=== PATIENT | female | born 1940 | race Caucasian/White ===

== ENCOUNTER 2016-11-24 19:50 | Emergency (ER) | payer MEDICARE ==
[2016-11-24 20:00] VITALS: BP 124/69
[2016-11-24] MEDS ORDERED: Cephalexin CAP* 500 MG PO ONE (20:16)
--- NOTE | 2016-11-24 20:37 | UC ---
Skin Complaint HPI - HPI Summary HPI Summary: Three days of blistering with increasing tenderness and redness of left great toe. No history of gout. No known trauma, but has been on feet a lot. No history of fever or diabetes. - History of Current Complaint Chief Complaint: UCLowerExtremity Time Seen by Provider: 11/24/16 20:04 Stated Complaint: LT FOOT TOE COMPLAINT Hx Obtained From: Patient Onset/Duration: Gradual Onset, Lasting Days, Worse Since - daily Onset Severity: Mild Current Severity: Mild Pain Intensity: 7 Pain Scale Used: 0-10 Numeric Location: Discrete Character: Swelling - small blister, Redness, Painful Aggravating: Nothing Alleviating: Nothing Associated Signs & Symptoms: Positive: Tenderness, Red Streaks. Negative: Fever , Cough, Drainage, Bruising, Joint Swelling - Allergy/Home Medications Allergies/Adverse Reactions: Allergies Allergy/AdvReac Type Severity Reaction Status Date / Time Aspirin Allergy GI Upset Verified 11/24/16 20:01 Home Medications: Home Medications aMILoride/HCTZ 5-50 MG TAB* [Moduretic 5-50 TAB*] 1 tab PO DAILY 11/24/16 [ History Confirmed 11/24/16] Review of Systems Constitutional: Negative Skin: Other - LEFT GREAT TOE ERRETHEMA 1CM X 1CM BLISTER MEDIAL DISTAL TOE Eyes: Negative ENT: Negative Respiratory: Negative Cardiovascular: Negative Gastrointestinal: Negative Genitourinary: Negative Motor: Negative Neurovascular: Negative Musculoskeletal: Negative Neurological: Negative Psychological: Negative All Other Systems Reviewed And Are Negative: Yes PMH/Surg Hx/FS Hx/Imm Hx Previously Healthy: Yes Endocrine History Of: Denies: Diabetes, Thyroid Disease Cardiovascular History Of: Denies: Cardiac Disorders, Hypertension Respiratory History Of: Denies: COPD, Asthma GI/ History Of: Denies: Ulcer - Surgical History Surgical History: Yes Surgery Procedure, Year, and Place: Right Rotator cuff. metatarsal reconstruction left foot. right foot procedure. trigger finger release middle finger right hand. carpal tunnel release - Family History Known Family History: Negative: Diabetes - Social History Occupation: Retired Lives: With Family Alcohol Use: None Substance Use Type: None Smoking Status (MU): Never Smoked Tobacco Physical Exam Triage Information Reviewed: Yes Appearance: Well-Appearing, No Pain Distress Vital Signs: Initial Vital Signs Temp 98.3 F 11/24/16 19:55 Pulse 77 11/24/16 19:55 Resp 14 04/14/17 19:55 BP 124/69 11/24/16 19:55 Pulse Ox 98 11/24/16 19:55 Vital Signs Reviewed: Yes Eye Exam: Normal ENT Exam: Normal Dental Exam: Normal Neck exam: Normal Neck: Positive: Supple, Nontender, No Lymphadenopathy Respiratory Exam: Normal Respiratory: Positive: Chest non-tender, Lungs clear, Normal breath sounds, No respiratory distress Cardiovascular Exam: Normal Cardiovascular: Positive: RRR, No Murmur, Pulses Normal Abdominal Exam: Normal Musculoskeletal Exam: Normal Neurological Exam: Normal Psychological Exam: Normal Skin Exam: Normal Course/Dx - Differential Diagnoses - Skin Complaint Differential Diagnoses: Abscess, Cellulitis, Other - GOUT - Diagnoses Provider Diagnoses: CELLULITIS LEFT GREAT TOE Discharge - Discharge Plan Condition: Stable Disposition: HOME Prescriptions: Cephalexin CAP* [Keflex CAP*] 500 mg PO QID #40 cap Patient Education Materials: Cellulitis (ED) Referrals: Kaleb BUTLER,Cole Causey [Medical Doctor] -
== END 2016-11-24 20:39 | disposition home or self-care (01) ==
LOC: UCCORT 19:50
DX: L03.032 Cellulitis of left toe (principal); Z88.6 Allergy status to analgesic agent
CPT/HCPCS: 99202; A9270-GY; G0463

== ENCOUNTER 2017-02-11 18:36 | Emergency (ER) | payer MEDICARE ==
[2017-02-11 18:53] VITALS: BP 119/67
[2017-02-11] MEDS ORDERED: Cephalexin CAP* 500 MG PO ONE (19:32)
--- NOTE | 2017-02-11 19:32 | UC ---
General HPI - HPI Summary HPI Summary: complaint of red area on her right leg above her ankle has it for approx 1 week intermittently painful redness has increased then reduced over the last few days extreley itchy unkown if she was insect bite, been in the garden denies fever and pain - History of Current Complaint Chief Complaint: UCSkin Stated Complaint: right leg skin complaint Time Seen by Provider: 02/11/17 19:21 Hx Obtained From: Patient - Allergy/Home Medications Allergies/Adverse Reactions: Allergies Allergy/AdvReac Type Severity Reaction Status Date / Time Aspirin AdvReac GI Upset Verified 02/11/17 18:53 Home Medications: Home Medications Zolpidem TAB* [Ambien*] 0.5 mg PO BEDTIME PRN 02/11/17 [History Confirmed ] diPHENhydraMINE PO* [Benadryl PO 25 MG TAB*] 25 mg PO ONCE 02/11/17 [History Confirmed 02/11/17] PMH/Surg Hx/FS Hx/Imm Hx Previously Healthy: Yes - Surgical History Surgical History: Yes Surgery Procedure, Year, and Place: Right Rotator cuff. metatarsal reconstruction left foot. right foot procedure. trigger finger release middle finger right hand. carpal tunnel release - Family History Known Family History: Negative: Cardiac Disease, Hypertension, Diabetes - Social History Occupation: Retired Lives: With Family Alcohol Use: Occasionally Substance Use Type: None Smoking Status (MU): Never Smoked Tobacco Review of Systems Constitutional: Negative Skin: Rash Eyes: Negative ENT: Negative Respiratory: Negative Cardiovascular: Negative Gastrointestinal: Negative Genitourinary: Negative Motor: Negative Neurovascular: Negative Musculoskeletal: Negative Neurological: Negative Psychological: Negative All Other Systems Reviewed And Are Negative: Yes Physical Exam Triage Information Reviewed: Yes Appearance: No Pain Distress, Well-Nourished Vital Signs: Initial Vital Signs Temp 97.6 F 02/11/17 18:41 Pulse 75 02/11/17 18:41 Resp 20 02/11/17 18:41 BP 119/67 02/11/17 18:41 Pulse Ox 100 02/11/17 18:41 Vital Signs Reviewed: Yes Eyes: Positive: Conjunctiva Clear ENT: Positive: Pharynx normal, TMs normal Neck: Positive: Supple Respiratory: Positive: Lungs clear, Normal breath sounds, No respiratory distress Cardiovascular: Positive: RRR, No Murmur, Pulses Normal Abdomen Description: Positive: Nontender, Soft Bowel Sounds: Positive: Present Musculoskeletal: Positive: No Edema Neurological: Positive: Alert Psychological Exam: Normal Skin: Positive: Other - right leg obve medial mallelous 7x9 cm area of erythema - warm to touch Course/Dx - Course Course Of Treatment: exam completed. will treat for cellulitis. pt concerned about lyme disease- no known tick bites- will draw serology - Differential Dx - Multi-Symptom Provider Diagnoses: cellulitis Discharge - Discharge Plan Condition: Stable Disposition: HOME Prescriptions: Cephalexin CAP* [Keflex CAP*] 500 mg PO TID #20 cap Patient Education Materials: Cellulitis (ED) Referrals: Dora Casey DO [Primary Care Provider] - Additional Instructions: Please start antibiotic as directed Increase fluids and rest Take acetaminophen or ibuprofen for fever or pain Please review your discharge instructions. If your symptoms do not improve please call your primary care provider or return to urgent care.
== END 2017-02-11 20:06 | disposition home or self-care (01) ==
LOC: UCCORT 18:36
DX: L03.115 Cellulitis of right lower limb (principal)
CPT/HCPCS: 86618; 99212; A9270-GY; G0463

== ENCOUNTER 2017-07-13 15:10 | Emergency (ER) | payer MEDICARE ==
[2017-07-13 16:08] VITALS: BP 124/73
--- NOTE | 2017-07-13 17:05 | UC ---
Complaint Female HPI - HPI Summary HPI Summary: THREE DAYS AGO HAD 'STOMACH BUG' NAUSEA, ONE EPISODE OF VOMITING, AND DIARRHEA. SYMPTOMS RESOLVED (LOOSE STOOL STILL REMAINS). ONE DAY OF DISCOMFORT WITH URINATION. NO ABDOMINAL PAIN. NO BACK PAIN. - History Of Current Complaint Chief Complaint: UCGU Stated Complaint: URINARY COMPLAINT Time Seen by Provider: 07/13/17 16:16 Hx Obtained From: Patient, Family/Moving Consultant Onset/Duration: Gradual Onset, Lasting Days Timing: Intermittent Severity Currently: Mild Pain Intensity: 2 Pain Scale Used: 0-10 Numeric Character: Dull Aggravating Factor(s): Urination Associated Signs And Symptoms: Positive: Nausea - RESOLVED, Vomiting(# Of Episodes =) - 1 RESOLVED. Negative: Fever, Back Pain, Vaginal Bleeding/ Discharge, Vaginal Discharge, Genital Swelling, Genital Blisters - Risk Factors Ectopic Risk Factor: Negative Ovarian Torsion Risk Factor: Negative - Allergies/Home Medications Allergies/Adverse Reactions: Allergies Allergy/AdvReac Type Severity Reaction Status Date / Time Aspirin AdvReac GI Upset Verified 07/13/17 16:02 PMH/Surg Hx/FS Hx/Imm Hx Previously Healthy: Yes - Surgical History Surgical History: Yes Surgery Procedure, Year, and Place: Right Rotator cuff. metatarsal reconstruction left foot. right foot procedure. trigger finger release middle finger right hand. carpal tunnel release - Family History Known Family History: Negative: Cardiac Disease, Hypertension, Diabetes - Social History Occupation: Retired Lives: With Family Alcohol Use: None Substance Use Type: None Smoking Status (MU): Never Smoked Tobacco - Immunization History Most Recent Influenza Vaccination: 2017 Review of Systems Constitutional: Negative Skin: Negative Eyes: Negative ENT: Negative Respiratory: Negative Cardiovascular: Negative Gastrointestinal: Vomiting - RESOLVED, Diarrhea - RESOLVING, Nausea - RESOLVED Genitourinary: Dysuria, Frequency Motor: Negative Neurovascular: Negative Musculoskeletal: Negative Neurological: Negative Psychological: Negative Is Patient Immunocompromised?: No All Other Systems Reviewed And Are Negative: Yes Physical Exam Triage Information Reviewed: Yes Appearance: Well-Appearing, No Pain Distress, Well-Nourished Vital Signs: Initial Vital Signs Temp 97.9 F 07/13/17 16:03 Pulse 76 07/13/17 16:03 Resp 16 07/13/17 16:03 BP 124/73 07/13/17 16:03 Pulse Ox 100 07/13/17 16:03 Vital Signs Reviewed: Yes Eye Exam: Normal ENT Exam: Normal ENT: Positive: Normal ENT inspection Dental Exam: Normal Neck exam: Normal Neck: Positive: Supple, Nontender, No Lymphadenopathy Respiratory Exam: Normal Respiratory: Positive: Chest non-tender, Lungs clear, Normal breath sounds, No respiratory distress, No accessory muscle use Cardiovascular Exam: Normal Cardiovascular: Positive: RRR, No Murmur, Pulses Normal, Brisk Capillary Refill Abdominal Exam: Normal Abdomen Description: Positive: Nontender, No Organomegaly, Soft Musculoskeletal Exam: Normal Musculoskeletal: Positive: Strength Intact, ROM Intact Neurological Exam: Normal Psychological Exam: Normal Skin Exam: Normal Complaint Female Dx - Differential Dx/Diagnosis Differential Diagnosis/HQI/PQRI: Urinary Tract Infection, Other - GASTROENTERITIS, CYSTITIS Provider Diagnoses: URINARY TRACT INFECTION Discharge - Discharge Plan Condition: Stable Disposition: HOME Prescriptions: Phenazopyridine TAB* [Pyridium 100 mg TAB*] 100 mg PO TID PRN #15 tab PRN Reason: Pain Sulfamethox/Trimethoprim DS* [Bactrim DS 800/160 TAB*] 1 tab PO BID #10 tab Patient Education Materials: Urinary Tract Infection in Women (ED) Referrals: Dora Casey DO [Primary Care Provider] -
== END 2017-07-13 16:56 | disposition home or self-care (01) ==
LOC: UCCORT 15:10
DX: N39.0 Urinary tract infection, site not specified (principal); B96.20 Unspecified Escherichia coli [E. coli] as the cause of diseases classified elsewhere; Z16.11 Resistance to penicillins
CPT/HCPCS: 81003; 87077; 87086; 87186; 99212; G0463

== ENCOUNTER 2017-07-17 21:15 | Emergency (ER) | payer MEDICARE ==
[2017-07-17 21:32] VITALS: BP 119/51
[2017-07-17] MEDS ORDERED: Lidocaine 1% INJ* 10 MG/ML 30 ML SDV INJ ONE (21:47)
[2017-07-17] MEDS ORDERED: Lidocaine 1%* 5 ML VIAL ONE (21:52)
--- NOTE | 2017-07-17 21:54 | UC ---
Hand/Wrist HPI - HPI Summary HPI Summary: 76 y/o female while gardening this AM was stuck by piece of plastic into right middle finger, attempted to remove but deep and broke, + tender to touch, up to date on tetanus, full ROM, sensation intact. - History Of Current Complaint Chief Complaint: UCGeneralIllness Stated Complaint: SPLINTER Time Seen by Provider: 07/17/17 21:43 Hx Obtained From: Patient, Family/Special Effects Person - ?: No Onset/Duration: Sudden Onset, Lasting Hours Character Of Pain: Aching Aggravating Factor(s): Other - palpation Alleviating Factor(s): Rest - Allergies/Home Medications Allergies/Adverse Reactions: Allergies Allergy/AdvReac Type Severity Reaction Status Date / Time Aspirin AdvReac GI Upset Verified 07/17/17 21:26 PMH/Surg Hx/FS Hx/Imm Hx Previously Healthy: Yes - Surgical History Surgical History: Yes Surgery Procedure, Year, and Place: Right Rotator cuff. metatarsal reconstruction left foot. right foot procedure. trigger finger release middle finger right hand. carpal tunnel release - Family History Known Family History: Negative: Cardiac Disease, Hypertension, Diabetes - Social History Alcohol Use: None Substance Use Type: None Smoking Status (MU): Never Smoked Tobacco - Immunization History Most Recent Influenza Vaccination: 2017 Review of Systems Musculoskeletal: Arthralgia Is Patient Immunocompromised?: No All Other Systems Reviewed And Are Negative: Yes Physical Exam Triage Information Reviewed: Yes Appearance: Well-Appearing, No Pain Distress, Well-Nourished Vital Signs: Initial Vital Signs Temp 97.2 F 07/17/17 21:27 Pulse 78 07/17/17 21:27 Resp 16 07/17/17 21:27 BP 119/51 07/17/17 21:27 Pulse Ox 100 07/17/17 21:27 Musculoskeletal Exam: Normal Musculoskeletal: Positive: Strength Intact, ROM Intact, Edema @ - minimal edema middle tip of finger, Other: - rad, ulnar pulsese 2+ R hand, sensation intact to all fingers, full ROM R middle finger, Neurological Exam: Normal Psychological Exam: Normal Skin Exam: Normal Procedures - Procedure Summary Procedure Summary: silver seen right middle finger tip, anes with lidocaine 1~ 2cc, silver removed without complication, tolerated well. Hand/Wrist Course/Dx - Course Course Of Treatment: middle figner numbed with lidocaine, ~ 1cm fiberglass sliver removed without complication, patient tolerated well. follow up with PCP - Differential Dx/Diagnosis Differential Diagnosis/HQI/PQRI: Bursitis Provider Diagnoses: silver right middle finger tip removed without complication Discharge - Discharge Plan Condition: Good Disposition: HOME Prescriptions: Cephalexin CAP* [Keflex CAP*] 500 mg PO TID #21 cap Patient Education Materials: Soft Tissue Foreign Body (ED) Referrals: Dora Casey DO [Primary Care Provider] - Additional Instructions: - keflex as directed for redness, swelling - motrin/ tylenol for pain or ice, elevate - follow up with primary for continued pain, swelling
== END 2017-07-17 22:18 | disposition home or self-care (01) ==
LOC: UCCORT 21:15
DX: S60.452A Superficial foreign body of right middle finger, initial encounter (principal); W45.8XXA Other foreign body or object entering through skin, initial encounter; Y93.H2 Activity, gardening and landscaping; Y92.9 Unspecified place or not applicable; Z88.6 Allergy status to analgesic agent
CPT/HCPCS: 10120; 99212; G0463

== ENCOUNTER 2017-08-07 14:30 | Emergency (ER) | payer MEDICARE ==
[2017-08-07 14:56] VITALS: BP 124/69
--- NOTE | 2017-08-07 15:19 | UC ---
Complaint Female HPI - HPI Summary HPI Summary: Pt c/o frequency and urgency with urination X 2 days. Pt was treated 2 weeks ago with Bactrim X 5 days. Ammon is traveling to [place] for 4 weeks leaving to [facility] and [facility]. - History Of Current Complaint Chief Complaint: UCGU Stated Complaint: URINARY Time Seen by Provider: 08/07/17 14:58 Hx Obtained From: Patient Hx Last Menstrual Period: n/a ?: No Onset/Duration: Sudden Onset, Lasting Days Timing: Intermittent, Lasting Seconds Severity Initially: Mild Severity Currently: Mild Character: Burning Aggravating Factor(s): Urination - Risk Factors Ectopic Risk Factor: Negative Ovarian Torsion Risk Factor: Negative - Allergies/Home Medications Allergies/Adverse Reactions: Allergies Allergy/AdvReac Type Severity Reaction Status Date / Time Aspirin AdvReac GI Upset Verified 08/07/17 14:56 Home Medications: Home Medications Omeprazole CAP* [Prilosec CAP* 20 MG] 20 mg PO DAILY 08/07/17 [History Confirmed 08/07/17] PMH/Surg Hx/FS Hx/Imm Hx Previously Healthy: Yes Cardiovascular History: Hypertension GI/ History: Gastroesophageal Reflux - Surgical History Surgical History: Yes Surgery Procedure, Year, and Place: Right Rotator cuff. metatarsal reconstruction left foot. right foot procedure. trigger finger release middle finger right hand. carpal tunnel release - Family History Known Family History: Negative: Cardiac Disease, Hypertension, Diabetes - Social History Occupation: Retired Lives: With Family Alcohol Use: None Substance Use Type: None Smoking Status (MU): Never Smoked Tobacco Have You Smoked in the Last Year: No - Immunization History Most Recent Influenza Vaccination: 2017 Vaccination Up to Date: Yes Review of Systems Constitutional: Negative Skin: Negative Eyes: Negative ENT: Negative Respiratory: Negative Cardiovascular: Negative Gastrointestinal: Negative Genitourinary: Frequency, Urgency Motor: Negative Neurovascular: Negative Musculoskeletal: Negative Neurological: Negative Psychological: Negative Is Patient Immunocompromised?: No All Other Systems Reviewed And Are Negative: Yes Physical Exam Triage Information Reviewed: Yes Appearance: Well-Appearing Vital Signs: Initial Vital Signs Temp 98.2 F 08/07/17 14:53 Pulse 80 08/07/17 14:53 Resp 18 08/07/17 14:53 BP 124/69 08/07/17 14:53 Pulse Ox 100 08/07/17 14:53 Vital Signs Reviewed: Yes Eye Exam: Normal ENT Exam: Normal Dental Exam: Normal Neck exam: Normal Respiratory Exam: Normal Cardiovascular Exam: Normal Abdominal Exam: Normal Musculoskeletal Exam: Normal Neurological Exam: Normal Psychological Exam: Normal Skin Exam: Normal Complaint Female Dx - Differential Dx/Diagnosis Differential Diagnosis/HQI/PQRI: Urinary Tract Infection, Other - dysuria Provider Diagnoses: dysuria Discharge - Discharge Plan Condition: Stable Disposition: HOME Prescriptions: Ciprofloxacin TAB* [Cipro 500 MG TAB*] 500 mg PO Q12H #10 tab Patient Education Materials: Dysuria (ED) Referrals: Dora Casey DO [Primary Care Provider] - If Needed
== END 2017-08-07 15:24 | disposition home or self-care (01) ==
LOC: UCCORT 14:30
DX: R30.0 Dysuria (principal); K21.9 Gastro-esophageal reflux disease without esophagitis
CPT/HCPCS: 81003; 99212; G0463

== ENCOUNTER 2018-09-09 11:09 | Emergency (ER) | payer MEDICARE ==
[2018-09-09 11:27] VITALS: BP 137/69
--- NOTE | 2018-09-09 11:51 | UC ---
Throat Pain/Nasal Kwadwo HPI - HPI Summary HPI Summary: 77 year old female with no recent illnesses, exposures presents with cold like symptoms x 3-4 days with increase severe sore throat with painful swallowing x 2 -3 days, no improvement, no strep exposure. able to swallow, no chest pain, SOB, fevr, chills, + fatigue. no sinus tenderness, no GI symptoms. no ear pain , although starting to radiate up throat towards ears. - History of Current Complaint Chief Complaint: UCGeneralIllness Stated Complaint: SORE THROAT Time Seen by Provider: 09/09/18 11:25 Hx Obtained From: Patient, Family/Photogrammetry Airplane Pilot - Hx Last Menstrual Period: n/a ?: No Onset/Duration: Sudden Onset, Lasting Days Severity: Severe Pain Intensity: 7 Pain Scale Used: 0-10 Numeric - Allergies/Home Medications Allergies/Adverse Reactions: Allergies Allergy/AdvReac Type Severity Reaction Status Date / Time aspirin AdvReac GI Upset Verified 09/09/18 11:24 PMH/Surg Hx/FS Hx/Imm Hx Previously Healthy: Yes - Surgical History Surgical History: Yes Surgery Procedure, Year, and Place: Right Rotator cuff. metatarsal reconstruction left foot. right foot procedure. trigger finger release middle finger right hand. carpal tunnel release - Family History Known Family History: Negative: Cardiac Disease, Hypertension, Diabetes - Social History Alcohol Use: None Substance Use Type: None Smoking Status (MU): Never Smoked Tobacco Have You Smoked in the Last Year: No - Immunization History Most Recent Influenza Vaccination: 2017 Vaccination Up to Date: Yes Review of Systems All Other Systems Reviewed And Are Negative: Yes Constitutional: Positive: Negative. Negative: Fever, Chills Skin: Positive: Negative Eyes: Negative: Negative ENT: Positive: Sore Throat. Negative: Ear Ache, Nasal Discharge, Sinus Congestion, Sinus Pain/Tenderness Respiratory: Positive: Negative Cardiovascular: Positive: Negative Is Patient Immunocompromised?: No Physical Exam Triage Information Reviewed: Yes Appearance: Well-Appearing, No Pain Distress, Well-Nourished Vital Signs: Initial Vital Signs Temp 97.3 F 09/09/18 11:23 Pulse 74 09/09/18 11:23 Resp 20 09/09/18 11:23 BP 137/69 09/09/18 11:23 Pulse Ox 100 09/09/18 11:23 Eyes: Positive: Conjunctiva Clear ENT: Positive: Hearing grossly normal, Pharyngeal erythema - mild with exudates , TMs normal, Tonsillar exudate - b/l, Uvula midline. Negative: Nasal congestion, Nasal drainage, TM bulging, TM dull, TM red, Tonsillar swelling, Dental tenderness, Sinus tenderness Neck: Positive: Supple, Nontender, Enlarged Nodes @ - minimal submand Respiratory: Positive: Chest non-tender, Lungs clear, Normal breath sounds, No respiratory distress, No accessory muscle use. Negative: Crackles, Rhonchi, Stridor, Wheezing Cardiovascular: Positive: RRR Psychological Exam: Normal Throat Pain/Nasal Course/Dx - Course Course Of Treatment: rapid strep -, pharyngitis, abx given, OTC treatments - Differential Dx/Diagnosis Differential Diagnosis/HQI/PQRI: Pharyngitis Provider Diagnosis: Pharyngitis Discharge - Sign-Out/Discharge Documenting (check all that apply): Patient Departure All imaging exams completed and their final reports reviewed: No Studies - Discharge Plan Condition: Good Disposition: HOME Prescriptions: Amoxicillin 500 mg PO BID #20 capsule Patient Education Materials: Pharyngitis (ED) Referrals: Dora Casey DO [Primary Care Provider] - Additional Instructions: - Antibiotics as directed for 10 days, twice daily - Increase fluid intake - Cough drops, Motrin/ tylenol as needed for throat pain - REturn with decreased swallowing, fever > 102, shortness of breath - Billing Disposition and Condition Condition: GOOD Disposition: Home
== END 2018-09-09 11:55 | disposition home or self-care (01) ==
LOC: UCCORT 11:09
DX: J02.9 Acute pharyngitis, unspecified (principal); Z88.8 Allergy status to other drugs, medicaments and biological substances
CPT/HCPCS: 87651; 99212; G0463

== ENCOUNTER 2018-10-09 15:31 | Emergency (ER) | payer MEDICARE ==
[2018-10-09 16:26] VITALS: BP 129/50
--- NOTE | 2018-10-09 16:53 | ED ---
Skin Complaint - HPI Summary HPI Summary: 78 yr old female with the complaint of left great toe redness that has spread onto the dorsum of her foot. She started getting redness three days ago. The patient complains of mild pain, she is able to bear weight. No trauma or injury. She had a prior staff infection many years ago in the same foot. Dr Jamison was her surgeon in [place] who took care of the foot. He retired. She is seeing Dr Crews. - History of Current Complaint Chief Complaint: UCLowerExtremity Time Seen by Provider: 10/09/18 16:38 Stated Complaint: LEFT TOE CONCERN Hx Last Menstrual Period: n/a Pain Intensity: 6 - Allergy/Home Medications Allergies/Adverse Reactions: Allergies Allergy/AdvReac Type Severity Reaction Status Date / Time aspirin AdvReac GI Upset Verified 10/09/18 16:26 PMH/Surg Hx/FS Hx/Imm Hx Endocrine/Hematology History: Denies: Hx Diabetes, Hx Thyroid Disease Cardiovascular History: Denies: Hx Hypertension Respiratory History: Denies: Hx Asthma, Hx Chronic Obstructive Pulmonary Disease (COPD) GI History: Denies: Hx Ulcer - Surgical History Surgery Procedure, Year, and Place: Right Rotator cuff. metatarsal reconstruction left foot. right foot procedure. trigger finger release middle finger right hand. carpal tunnel release Infectious Disease History: Yes Infectious Disease History: Reports: Hx Shingles, History Other Infectious Disease - Giardia Denies: Hx Hepatitis, Hx Human Immunodeficiency Virus (HIV), Traveled Outside the in Last 30 Days - Family History Known Family History: Negative: Cardiac Disease, Hypertension, Diabetes - Social History Occupation: Employed Full-time Lives: With Family Alcohol Use: Rare Substance Use Type: Reports: None Smoking Status (MU): Never Smoked Tobacco Have You Smoked in the Last Year: No Review of Systems Constitutional: Negative Negative: Fever, Chills Positive: Other - redness left foot All Other Systems Reviewed And Are Negative: Yes Physical Exam Triage Information Reviewed: Yes Vital Signs On Initial Exam: Initial Vitals Temp Pulse Resp BP Pulse Ox 97.2 F 71 15 129/50 100 10/09/18 16:20 10/09/18 16:20 10/09/18 16:20 10/09/18 16:20 10/09/18 16:20 Vital Signs Reviewed: Yes Appearance: Positive: Well-Appearing, No Pain Distress Skin: Positive: Other - cellulitis left foot 1st toe and onto the distal dorsum. Head/Face: Positive: Normal Head/Face Inspection Eyes: Positive: EOMI ENT: Positive: Normal ENT inspection Neck: Positive: Nontender Respiratory/Lung Sounds: Positive: Clear to Auscultation, Breath Sounds Present Cardiovascular: Positive: RRR, Pulses are Symmetrical in both Upper and Lower Extremities. Negative: Murmur Abdomen Description: Negative: Distended Musculoskeletal: Positive: Strength/ROM Intact, Other - no tenderness to the metatarsal joint or effusion. Neurological: Positive: Sensory/Motor Intact, Alert, Oriented to Person Place, Time, CN Intact II-III, Speech Normal Psychiatric: Positive: Normal Diagnostics - Vital Signs Vital Signs Temp Pulse Resp BP Pulse Ox 10/09/18 16:20 97.2 F 71 15 129/50 100 - Laboratory Lab Statement: Any lab studies that have been ordered have been reviewed, and results considered in the medical decision making process. Course/Dx - Course Course Of Treatment: 78 yr old with cellulitis to the left foot. Rx Clindamycin. Fu with [facility], and Dr Crews. - Diagnoses Provider Diagnoses: Cellulitis of foot, left Discharge - Sign-Out/Discharge Documenting (check all that apply): Patient Departure All imaging exams completed and their final reports reviewed: No Studies - Discharge Plan Condition: Good Disposition: HOME Prescriptions: Clindamycin Cap(NF) [Clindamycin Cap 300 mg Cap(NF)] 300 mg PO Q6H #40 cap Patient Education Materials: Cellulitis (ED) Referrals: Dora Csaey DO [Primary Care Provider] - 2 Days - Billing Disposition and Condition Condition: GOOD Disposition: Home
== END 2018-10-09 16:52 | disposition home or self-care (01) ==
LOC: UCCORT 15:31
DX: L03.116 Cellulitis of left lower limb (principal); Z88.8 Allergy status to other drugs, medicaments and biological substances
CPT/HCPCS: 99212; G0463

== ENCOUNTER 2019-10-04 16:14 | Emergency (ER) | payer MEDICARE ==
--- OUTSIDE RECORDS SUMMARY | 2019-10-04 16:23 | XMS REPORT | Continuity of Care Document ---
:1940 External Reference #:[id number] Author Name Anatoliy Godfrey MD Address [address] [facility] [address], [place] [address] Problems Active Problems Provider Date Giardiasis Anatoliy Godfrey MD Onset: 10/27/2011 Social History Type Date Description Comments Sex Unknown Tobacco Use Start: Unknown Patient has never smoked Allergies, Adverse Reactions, Alerts Active Allergies Reaction Severity Comments Date Aspirin 01/18/2004 Medications Active Medications SIG Qnty Indications Ordering Provider Date Atovaquone-Proguanil 1 take by mouth 30tabs Anatoliy Godfrey 05/31/2019 HCL tablet with food MD Gibran 250-100mg Tablets or milk start 1 day before [place] leaving take every day until back in [facility] 1 week Amiloride/Hydrochloro Anatoliy Godfrey 10/23/2011 thiazide MD Gibran 5-50mg Tablets Ambien one po qhs prn 6tabs Anatoliy Godfrey 01/18/2004 5mg Tablets sleep for jet lag MD Gibran Centrum Silver Unknown 50+Women 50+Women Tablets Immunizations CPT Code Status Date Vaccine Lot # [id number] Given 04/20/2015 Typhoid Vaccine Live,Oral [id number] Given 01/31/2008 Tdap (Adacel) Ages 7 And Above Only [id number] Given 01/31/2008 Hepatitis A Vaccine, Adult Dosage [id number] Given 01/18/2004 Yellow Fever Immunization 07582 Given 01/18/2004 IPV / Poliomyelitis Immunization 73331 Given 01/18/2004 Typhoid Vaccine Live,Oral 19693 Given 01/18/2004 Hepatitis A Vaccine, Adult Dosage Vital Signs Date Vital Result Comment 08/18/2019 1:35pm Body Temperature 98.0 F Weight 160.00 lb Heart Rate 67 /min BP Systolic 110 mmHg BP Diastolic 68 mmHg O2 % BldC Oximetry 93 % 05/28/2018 10:15am Body Temperature 97.6 F Weight 169.00 lb Heart Rate 75 /min BP Systolic 106 mmHg L Arm, Sitting BP Diastolic 64 mmHg L Arm, Sitting Height 60 inches 5'0" O2 % BldC Oximetry 97 % BMI (Body Mass Index) 33.0 kg/m2 Results Test Acquired Date Facility Test Result H/L Range Note Blood Smear 08/18/2019 [facility] Malaria Smear Thin smear: 1 Malaria Bld CBC + Diff, 08/18/2019 [facility] WBC Num Bld 8.0 10*3/uL 4-10 Plat Count Auto RBC Num Bld Auto 4.92 10*6/uL 4.1-5.3 Hgb Bld-mCnc 14.0 g/dL 11.5-15.5 Hct VFr Bld Auto 41.7 % 36-45 MCV RBC Auto 84.7 fL 80-96 MCH RBC Qn Auto 28.4 pg 27-33 MCHC RBC Auto-mCnc 33.6 g/dL 32.0-36.0 RDW RBC Auto-Rto 13.3 % 11.5-14.5 Platelet Num Bld Auto 274 10*3/uL 150-400 Differential method Bld Automated Diff Neutrophils/leuk NFr Bld Auto 53 % Lymphocytes/leuk NFr Bld Auto 33 % Monocytes/leuk NFr Bld Auto 11 % Eosinophil/leuk NFr Bld Auto 2 % Basophils/leuk NFr Bld Auto 1 % Neutrophils [Numb/volume] in Blood by Automated 4.26 10*3/uL 1.8-7.0 count Lymphocytes Num Bld Auto 2.68 10*3/uL 1.2-4.0 Monocytes Num Bld Auto 0.90 10*3/uL High 0-0.8 Eosinophil Num Bld Auto 0.13 10*3/uL 0-0.5 Basophils Num Bld Auto 0.06 10*3/uL 0-0.2 nRBC/100 WBC Bld Auto-Rto 0 /100{WBCs} 0-0 Laboratory test 08/18/2019 [facility] Free Thyroxine 1.33 ng/dL 0.93- 1.70 finding Comprehensive 08/18/2019 [facility] Albumin SerPl 4.2 g/dL 3.5-5.2 Metabolic Hammond BCG-mCnc Bilirub SerPl-mCnc 0.3 mg/dL <1.2 Calcium SerPl-mCnc 9.8 mg/dL 8.8-10.2 Chloride SerPl-sCnc 98 mmol/L 98-107 Creat SerPl-mCnc 0.62 mg/dL 0.50-0.90 Glucose SerPl-mCnc 119 mg/dL 70-140 Alp SerPl-cCnc 74 U/L 35-104 Potassium SerPl-sCnc 3.2 mmol/L Low 3.4-5.1 Prot SerPl-mCnc 7.1 g/dL 6.4-8.3 Sodium SerPl-sCnc 137 mmol/L 136-145 Ast SerPl-cCnc 22 U/L <32 BUN SerPl-mCnc 16 mg/dL 8-23 Osmolality SerPl Calc 286 mosm/kg 275-300 Creat/Urea nit SerPl 25 Hco3 Ser-sCnc 28 mmol/L 22-29 Alt SerPl-cCnc 28 U/L <33 Anion Gap3 SerPl-sCnc 11 mmol/L 8-15 Albumin/Glob SerPl 1.0 GFR/Bsa pred.non black SerPl MDRD-ArVRat 84 mL/min/1.73m2 >60 GFR/Bsa pred.black SerPl MDRD-ArVRat >90 mL/min/1.73m2 >60 Laboratory test finding 08/18/2019 [facility] TSH 1.910 u[IU]/mL 0.270 -4.200 1 Wrights stain: No Plasmodium, Babesia, Trypanosoma, or microfilaria seen. One negative sample does not rule out the possibility of a parasitic infection. Thick smear: Wrights stain: No Plasmodium, Babesia, Trypanosoma, or microfilaria seen. One negative sample does not rule out the possibility of a parasitic infection. Procedures Description No Information Available Medical Devices Description No Information Available Encounters Description No Information Available Assessments Date Code Description Provider 08/18/2019 R05 Cough Anatoliy Godfrey MD 08/18/2019 R53.83 Other fatigue Anatoliy Godfrey MD 08/18/2019 R42 Dizziness and giddiness Anatoliy Godfrey MD Plan of Treatment 08/18/2019 - Anatoliy Godfrey V, MDR05 CoughNew Labs:Blood Parasite Exam-RL, Scheduled: 08/18/19R53.83 Other fatigueNew Labs:CBC With Auto Diff, Scheduled: 08/18/19Comp Metabolic Panel-RL, Scheduled: 08/18/19TSH-fcmg, Scheduled: 05O3-Czup-VGHJ, Scheduled: 08/18/19R42 Dizziness and giddiness Functional Status Description No Information Available Mental Status Description No Information Available Referrals Description No Information Available
--- OUTSIDE RECORDS SUMMARY | 2019-10-04 16:23 | XMS REPORT | Summary of Care ---
:1940 Author Organization [facility] Address [address] [place] [address] Care Team Providers Name Role Phone JacintoDora Martha ODELL Primary Care Provider Encounter Details Date Type Department Care Team Description 08/18/2019 Hospital Encounter Diagnostic Radiology [address] [address] Allergies Active Allergy Reactions Severity Noted Date Comments Aspirin Other (See Comments) 05/13/2013 Stomach problems Clindamycin/Lincomycin Shortness Of Breath, High 11/01/2018 Swelling Metronidazole 02/08/2012 confusion Nitrofurantoin Rash Low 12/12/2018 Macrocrystal Naproxen Other (See Comments) 07/16/2012 Stomach agitated. Bupropion High 08/15/2013 Mental confusion and lethargy documented as of this encounter (statuses as of 08/19/2019) Medications Medication Sig Dispensed Refills Start Date End Date Status B Complex Vitamins Take by mouth 0 Active (VITAMIN B COMPLEX PO) every morning Cholecalciferol Take 1,000 Units 0 Active (VITAMIN D) 1000 UNITS by mouth every tablet morning clobetasol (TEMOVATE) Apply to affected 30 g 4 07/09/2017 Active 0.05 % area BID PRN ointmentIndications: vulvar pain Chronic vulvitis ibuprofen Take 200 mg by 0 Active (ADVIL,MOTRIN) 200 MG mouth every 6 tablet (six) hours as needed for Pain Diclofenac Sodium Apply 2 g 1 Tube 11 10/15/2017 Active (VOLTAREN) 1 % GEL topically Four times daily Additional information Patient taking differently: 2 g Topical Four Times Daily-PRN, Reported on 2:34 PM lansoprazole (PREVACID) Take 30 mg by mouth 0 Active 30 MG capsule daily as needed Multiple Vitamin Take 1 tablet by 0 Active (MULTIVITAMIN) tablet mouth every morning fluticasone (FLONASE) 50 1 spray by Nasal 16 g 12 01/27/2019 01/26/2020 Active MCG/ACT nasal spray route daily loratadine (CLARITIN) 10 Take 10 mg by mouth 0 Active MG tablet daily acetaminophen (TYLENOL) Take 500 mg by mouth 0 Active 500 MG tablet every 6 (six) hours as needed for Pain estradiol (ESTRACE) 0.1 Place 1 g vaginally 42.5 g 2 03/18/20192019 Active MG/GM vaginal cream daily Use nightly for 4 weeks and then 3x weekly. Methocarbamol 500 MG Take 1 tablet by 60 tablet 0 06/27/2019 Active Oral Tablet (ROBAXIN) mouth Three times daily as needed (pain/muscle spasms) aMILoride-hydroCHLOROthi TAKE 1 TABLET BY 90 tablet 1 07/21/2019 Active azide 5-50 MG Oral MOUTH DAILY Tablet (MODURETIC) Zolpidem Tartrate 10 MG TAKE ONE TABLET BY 30 tablet 0 08/12/2019 Active Oral Tablet (AMBIEN) MOUTH AT BEDTIME NEEDED FOR SLEEP MAXIMUM DAILY DOSE = 1 documented as of this encounter (statuses as of 08/19/2019) Active Problems Patient Care Coordination Note No show 11/20/16 Dr Casey, letter sent. 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 Insomnia 01/29/2012 Degenerative arthritis of knee, back, and left shoulder 01/29/2012 Hyperlipidemia 01/29/2012 Trochanteric bursitis 01/29/2012 History of giardia infection Skin cancer documented as of this encounter (statuses as of 08/19/2019) Resolved Problems Problem Noted Date Resolved Date Immunization due 07/16/2012 07/25/2017 Dyspepsia 01/29/2012 07/25/2017 History of colonoscopy 07/25/2017 documented as of this encounter (statuses as of 08/19/2019) Immunizations Name Administration Dates Next Due Influenza Split 06/02/2014, 07/02/2013, 05/15/2012 Influenza Tri High Dose IM Pres Free 05/22/2018 >=65YO (FLUZONE HD) Influenza Trivalent Recombinant >=18YO 04/09/2019, 06/08/2017 Preservative Free (FLUBLOK) Influenza Whole 04/09/2019 Pneumococcal Conjugate PCV13 06/05/2019 Tdap 08/31/2011 Yellow Fever 04/21/2019 Zoster (Shingles) Recombinant (SHINGRIX) 03/29/2019, 01/27/2019 documented as of this encounter Social History Tobacco Use Types Packs/Day Years Used Date Never Smoker 0 Smokeless Tobacco: Never Used Alcohol Use Drinks/Week oz/Week Comments Yes 0 Glasses of wine 0.0 seldom Sex Assigned at Date Recorded Not on file Job Start Date Occupation Industry Not on file Not on file Not on file Travel History Travel Start Travel [facility] 07/16/2019 08/05/2019 documented as of this encounter Last Filed Vital Signs Not on filedocumented in this encounter Plan of Treatment Date Type Specialty Care Team Description 12/10/2019 Office Visit Internal Medicine Dora Casey, [address] [place] [address] [phone] Health Maintenance Due Date Last Done Comments DTaP,Tdap,and Td Vaccines 01/23/2018 07/25/2017, 08/31/2011 (3 - Td) Influenza Vaccine 05/13/2019 04/09/2019, 04/09/2019, 05/22/2018, Additional history exists Varicella Vaccines (1 of 2 05/24/2019 03/29/2019, 01/27/2019 - 2-dose childhood series) Osteoporosis Screening 2 10/16/2019 10/15/2017 yr Zoster Vaccines Completed 03/29/2019, 01/27/2019 Pneumococcal Vaccine: 65+ Addressed 06/05/2019, 10/27/2018, Overridden with the Years 10/23/2018 intention of not completing the topic Pneumococcal Vaccine: Aged Out 06/05/2019 No longer eligible Pediatrics (0 to 5 Years) based on patient's age and At-Risk Patients (6 to to complete this topic 64 Years) HIB Vaccines Aged Out No longer eligible based on patient's age to complete this topic Hepatitis A Vaccines Aged Out No longer eligible based on patient's age to complete this topic Hepatitis B Vaccines Aged Out No longer eligible based on patient's age to complete this topic IPV Vaccines Aged Out No longer eligible based on patient's age to complete this topic MMR Vaccines Discontinued documented as of this encounter Goals Goal Patient Goal Associated Recent Patient-Stated? Author Type Problems Progress Exercise 3x Exercise Yes Jacinto, per week (30 Dora L, DO min per time) Note: Continue aqua therapy at [facility] documented as of this encounter Procedures Procedure Name Priority Date/Time Associated Diagnosis Comments XR CHEST FRONTAL Routine 08/18/2019 2:41 PM Cough Results for this AND LATERAL 07839 EST procedure are in the results section. documented in this encounter Results XR Chest Frontal and Lateral (08/18/2019 2:41 PM EST) Specimen Impressions Performed At IMPRESSION: [facility] No evidence of active pulmonary disease. Narrative Performed At CHEST FRONTAL/LATERAL [facility] HISTORY: Cough. TECHNIQUE: Frontal and lateral views of the chest were obtained. FINDINGS:: The heart and mediastinal contours are normal. The pulmonary vasculature is normal. The lungs are clear. The study was obtained in shallow inspiration. No pleural effusion or pneumothorax is seen. Degenerative changes are noted in the lumbosacral spine. Procedure Note Interface, Received Via [employer] System - 08/18/2019 3:04 PM EST CHEST FRONTAL/LATERAL HISTORY: Cough. TECHNIQUE: Frontal and lateral views of the chest were obtained. FINDINGS:: The heart and mediastinal contours are normal. The pulmonary vasculature is normal. The lungs are clear. The study was obtained in shallow inspiration. No pleural effusion or pneumothorax is seen. Degenerative changes are noted in the lumbosacral spine. IMPRESSION: No evidence of active pulmonary disease. Performing Organization Address City/State/Zipcode Phone Number [facility] [address] [place] [address] documented in this encounter Visit Diagnoses Diagnosis Cough documented in this encounter
--- OUTSIDE RECORDS SUMMARY | 2019-10-04 16:23 | XMS REPORT | Continuity of Care Document ---
:1939 External Reference #:[id number] Author Name Anatoliy Godfrey MD Address [address] [facility] [address], [place] [address] Problems Active Problems Provider Date Giardiasis Anatoliy Godfrey MD Onset: 10/27/2011 Social History Type Date Description Comments Sex Unknown Tobacco Use Start: Unknown Patient has never smoked Allergies, Adverse Reactions, Alerts Active Allergies Reaction Severity Comments Date Aspirin 01/18/2004 Metronidazole 09/01/2019 Bupropion 09/01/2019 Naproxen 09/01/2019 Clindamycin 09/01/2019 Nitrofurantoin, Macrocrystals / Nitrofurantoin, 09/01/2019 Monohydrate Medications Active Medications SIG Qnty Indications Ordering Provider Date Atovaquone-Proguanil 1 take by mouth 30tabs Anatoliy Godfrey 05/31/2019 HCL tablet with food MD Gibran 250-100mg Tablets or milk start 1 day before [place] leaving take every day until back [place] 1 week Amiloride/Hydrochloro Anatoliy Godfrey 10/23/2011 thiazide MD Gibran 5-50mg Tablets Ambien one po qhs prn 6tabs Anatoliy Godfrey 01/18/2004 5mg Tablets sleep for jet lag MD Gibran Centrum Silver Unknown 50+Women 50+Women Tablets Immunizations CPT Code Status Date Vaccine Lot # [id number] Given 04/20/2015 Typhoid Vaccine Live,Oral [id number] 78744 Given 01/31/2008 Tdap (Adacel) Ages 7 And Above Only [id number] 31517 Given 01/31/2008 Hepatitis A Vaccine, Adult Dosage [id number] 63345 Given 01/18/2004 Yellow Fever Immunization 38255 Given 01/18/2004 IPV / Poliomyelitis Immunization 64659 Given 01/18/2004 Typhoid Vaccine Live,Oral 52126 Given 01/18/2004 Hepatitis A Vaccine, Adult Dosage Vital Signs Date Vital Result Comment 09/01/2019 1:41pm Body Temperature 97.8 F Weight 165.12 lb Heart Rate 74 /min BP Systolic 130 mmHg BP Diastolic 70 mmHg 08/18/2019 1:35pm Body Temperature 98.0 F Weight 160.00 lb Heart Rate 67 /min BP Systolic 110 mmHg BP Diastolic 68 mmHg O2 % BldC Oximetry 93 % Results Test Acquired Date Facility Test Result H/L Range Note Blood Smear 08/18/2019 [facility] Malaria Smear Thin smear: 1 Malaria Bld CBC + Diff, 08/18/2019 [facility] WBC Num Bld 8.0 10*3/uL 4-10 Plat [...] Auto-Rto 0 /100{WBCs} 0-0 Laboratory test 08/18/2019 [facility] Free Thyroxine 1.33 ng/dL 0.93- 1.70 finding Comprehensive 08/18/2019 [facility] Albumin SerPl 4.2 g/dL 3.5-5.2 Metabolic Hammond [...] >90 mL/min/1.73m2 >60 Laboratory test finding 08/18/2019 [facility] TSH 1.910 u[IU]/mL 0.270 -4.200 1 Wrights [...] Information Available Assessments Date Code Description Provider 09/01/2019 A69.20 Lyme disease, unspecified Anatoliy Godfrey MD 09/01/2019 R42 Dizziness and giddiness Anatoliy Godfrey MD 08/18/2019 R05 Cough Anatoliy Godfrey MD 08/18/2019 R42 Dizziness and giddiness Anatoliy Godfrey MD 08/18/2019 R53.83 Other fatigue Anatoliy Godfrey MD Plan of Treatment 09/01/2019 - Anatoliy Godfrey V, MDA69.20 Lyme disease, unspecifiedComments: will redrw lyme and if neg should put her at ease if pos still jsut response to prviosu [id number] Dizziness and giddiness Functional Status Description No Information Available Mental Status Description No Information Available Referrals Description No Information Available
--- OUTSIDE RECORDS SUMMARY | 2019-10-04 16:23 | XMS REPORT | Summary of Care ---
:1939 Author Organization [facility] Address [address] [place] [address] Care Team Providers Name Role Phone JacintoDora Martha ODELL Primary Care Provider Encounter Details Date Type Department Care Team Description 08/18/2019 Hospital Encounter [facility] Clinical Pathology at [address] [address] Allergies Active Allergy Reactions Severity Noted Date [...] file Travel History Travel Start Travel End [facility] [place] [facility] 07/16/2019 08/05/2019 documented as of this encounter Last Filed Vital Signs Not on filedocumented in this encounter Plan of Treatment Date Type Specialty Care Team Description 12/10/2019 Office Visit Internal Medicine Dora Casey, DO [address] [place] [address] [place] [address] [phone] Name Type Priority Associated Diagnoses Date/Time Blood Smear, Malaria Microbiology STAT 08/18/2019 2:17 PM EST Health Maintenance Due Date Last Done Comments [...] per time) Note: Continue aqua therapy at [facility] documented as of this encounter Procedures Procedure Name Priority Date/Time Associated Comments Diagnosis BLOOD SMEAR, MALARIA STAT 08/18/2019 2:17 PM EST CBC AND DIFFERENTIAL STAT 08/18/2019 2:16 Results for this PM EST procedure are in the results section. TSH STAT 08/18/2019 2:16 Results for this PM EST procedure are in the results section. T4, FREE STAT 08/18/2019 2:16 Results for this PM EST procedure are in the results section. COMPREHENSIVE STAT 08/18/2019 2:16 Results for this METABOLIC PANEL PM EST procedure are in the results section. documented in this encounter Results TSH (08/18/2019 2:16 PM EST) TSH 1.910 0.270 - 4.200 u[IU]/mL [facility] at Specimen Plasma Performing Organization Address City/[facility]/Zipcode Phone Number [address] [address] [facility] at [address] [address] T4, free (08/18/2019 2:16 PM EST) Free Thyroxine 1.33 0.93 - 1.70 ng/dL [facility] at Specimen Plasma Performing Organization Address City/[facility]/Zipcode Phone Number [address] [address] [facility] at [address] [address] Comprehensive Metabolic Panel (08/18/2019 2:16 PM EST) Albumin 4.2 3.5 - 5.2 g/dL [facility] at Bilirubin, Total 0.3 <1.2 mg/dL [facility] at Calcium 9.8 8.8 - 10.2 [facility] mg/dL [facility] at Chloride 98 98 - 107 mmol/L [facility] at Creatinine 0.62 0.50 - 0.90 [facility] mg/dL [facility] at CG Glucose 119 70 - 140 mg/dL [facility] at Alkaline Phosphatase 74 35 - 104 U/L [facility] at Potassium 3.2 (L) 3.4 - 5.1 [facility] mmol/L [facility] at Total Protein 7.1 6.4 - 8.3 g/dL [facility] at Sodium 137 136 - 145 [facility] mmol/L [facility] at AST/SGO 22 <32 U/L [facility] Blood Urea Nitrogen 16 8 - 23 mg/dL [facility] at Osmolality, [place] 286 275 - 300 [facility] mosm/kg [facility] at BUN/Cre Ratio 25 [facility] Bicarbonate 28 22 - 29 mmol/L [facility] ALT/SGP 28 <33 U/L [facility] Anion Gap 11 8 - 15 mmol/L [facility] A/G Ratio 1.0 [facility] GFR Non 84 >60 [facility] [place] 2009 CDK-EPI mL/min/1.73m2 Medical [facility] at CG GFR >90 >60 [facility] 2009 CKD-EPI mL/min/1.73m2 [facility] at Specimen Plasma Performing Organization Address City/State/Zipcode Phone Number [facility] AT [address] [address] [phone] [facility] at [address] [place] [address] CBC and Differential (08/18/2019 2:16 PM EST) White Blood Cell 8.0 4 - 10 [facility] 10*3/uL [facility] at Red Blood Cell 4.92 4.1 - 5.3 [facility] 10*6/uL [facility] Hemoglobin 14.0 11.5 - 15.5 [facility] g/dL [facility] Hematocrit 41.7 36 - 45 % [facility] at Mean Cell Volume 84.7 80 - 96 fL [facility] Mean Cell Hemoglobin 28.4 27 - 33 pg [facility] at Mean Cell Hgb Conc 33.6 32.0 - 36.0 [facility] g/dL [facility] Red Cell Dist Width 13.3 11.5 - 14.5 % [facility] at Platelet Count 274 150 - 400 [facility] 10*3/uL [facility] Differential Type Automated Diff [facility] Neutrophil 53 % [facility] Lymphocyte 33 % [facility] Medical [facility] at Monocyte 11 % [facility] Eosinophil 2 % [facility] Basophil 1 % [facility] Abs Neutrophil 4.26 1.8 - 7.0 [facility] 10*3/uL [facility] at Abs Lymphocyte 2.68 1.2 - 4.0 [facility] 10*3/uL [facility] Abs Monocyte 0.90 (H) 0 - 0.8 [facility] 10*3/uL [facility] Abs Eosinophil 0.13 0 - 0.5 [facility] 10*3/uL [facility] Abs Basophil 0.06 0 - 0.2 [facility] 10*3/uL [facility] at Nucleated Red Blood 0 0 - 0 [facility] Cells /100{WBCs} [facility] Specimen EDTA Whole Blood Performing Organization Address City/State/Zipcode Phone Number [facility] AT [facility] [address] [place] [address] [phone] [facility] at [address] [place] [address] documented in this encounter
[2019-10-04 16:32] VITALS: BP 129/77
--- NOTE | 2019-10-04 16:46 | UC ---
Complaint Female HPI - HPI Summary HPI Summary: 79-year-old female who has had urinary symptoms over the past 2 days. She denies any fever or chills. She does have some low back pain. - History Of Current Complaint Chief Complaint: UCGU Stated Complaint: URINARY Time Seen by Provider: 10/04/19 16:29 Hx Obtained From: Patient Hx Last Menstrual Period: n/a ?: No Onset/Duration: Gradual Onset Timing: Intermittent Severity Initially: Mild Severity Currently: Mild Pain Intensity: 7 Character: Burning Aggravating Factor(s): Urination Associated Signs And Symptoms: Positive: Back Pain - Mild low back pain. - Allergies/Home Medications Allergies/Adverse Reactions: Allergies Allergy/AdvReac Type Severity Reaction Status Date / Time bupropion Allergy Swelling Verified 10/04/19 16:37 clindamycin Allergy Swelling Verified 10/04/19 16:37 Of Face,Lips,& Throat metronidazole Allergy Anaphylatic Verified 10/04/19 16:37 Shock naproxen Allergy Swelling Verified 10/04/19 16:37 Of Face,Lips,& Throat nitrofurantoin Allergy Rash Verified 10/04/19 16:37 aspirin AdvReac GI Upset Verified 10/04/19 16:33 Home Medications: Home Medications aMILoride/HCTZ 5-50 MG TAB* [Moduretic 5-50 TAB*] 1 tab PO DAILY 11/24/16 [ History Confirmed 10/04/19] Zolpidem TAB* [Ambien*] 0.5 mg PO BEDTIME PRN 02/11/17 [History Confirmed ] Omeprazole CAP (NF) [Prilosec CAP* 20 MG] 20 mg PO DAILY PRN 08/07/17 [History Confirmed 10/04/19] Cephalexin CAP* [Keflex 250 CAP*] 250 mg PO TID 7 Days #21 cap 10/04/19 [Rx] PMH/Surg Hx/FS Hx/Imm Hx Previously Healthy: Yes Cardiovascular History: Other - Fluid retention - Surgical History Surgical History: Yes Surgery Procedure, Year, and Place: Right Rotator cuff. metatarsal reconstruction left foot. right foot procedure. trigger finger release middle finger right hand. carpal tunnel release - Family History Known Family History: Negative: Cardiac Disease, Hypertension, Diabetes - Social History Occupation: Retired Lives: With Family Alcohol Use: Rare Substance Use Type: None Smoking Status (MU): Never Smoked Tobacco Have You Smoked in the Last Year: No - Immunization History Most Recent Influenza Vaccination: 2017 Vaccination Up to Date: Yes Review of Systems All Other Systems Reviewed And Are Negative: Yes Genitourinary: Positive: Dysuria, Frequency Musculoskeletal: Positive: Other: - Mild low back pain since yesterday. Is Patient Immunocompromised?: No Physical Exam Triage Information Reviewed: Yes Appearance: Well-Appearing, No Pain Distress, Well-Nourished Vital Signs: Initial Vital Signs Temp 98.7 F 10/04/19 16:27 Pulse 80 10/04/19 16:27 Resp 16 10/04/19 16:27 BP 129/77 10/04/19 16:27 Pulse Ox 98 10/04/19 16:27 Vital Signs Reviewed: Yes Respiratory: Positive: Lungs clear, Normal breath sounds, No respiratory distress, No accessory muscle use Cardiovascular: Positive: RRR, Pulses Normal, Brisk Capillary Refill, Murmur:Sys :Grade _?_/ - Grade I/ systolic murmur Abdomen Description: Positive: Nontender, No Organomegaly, Soft. Negative: CVA Tenderness (R), CVA Tenderness (L), Distended, Guarding, Hepatomegaly, Splenomegaly Bowel Sounds: Positive: Present Musculoskeletal Exam: Normal Neurological Exam: Normal Psychological Exam: Normal Skin Exam: Normal Complaint Female Dx - Course Course Of Treatment: Urinalysis: Positive for urinary tract infection. Patient is comfortable here and in no distress. The finding of a heart murmur was new to the patient therefore I encouraged her to call her primary care provider for further follow-up. - Differential Dx/Diagnosis Provider Diagnosis: UTI (urinary tract infection), Heart murmur previously undiagnosed Discharge ED - Sign-Out/Discharge Documenting (check all that apply): Patient Departure All imaging exams completed and their final reports reviewed: No Studies - Discharge Plan Condition: Good Disposition: HOME Prescriptions: Cephalexin CAP* [Keflex 250 CAP*] 250 mg PO TID 7 Days #21 cap Patient Education Materials: Urinary Tract Infection in Women (DC) Referrals: Dora Casey DO [Primary Care Provider] - Additional Instructions: Increase fluids, go to the emergency room if you develop fever, chills, worsening back pain or vomiting and unable keep the medicine down. Follow-up with your primary care provider regarding the finding of a heart murmur today. - Billing Disposition and Condition Condition: GOOD Disposition: Home
== END 2019-10-04 16:59 | disposition home or self-care (01) ==
LOC: UCCORT 16:14
DX: N39.0 Urinary tract infection, site not specified (principal); R01.1 Cardiac murmur, unspecified; Z88.8 Allergy status to other drugs, medicaments and biological substances; Z88.1 Allergy status to other antibiotic agents; Z88.6 Allergy status to analgesic agent
CPT/HCPCS: 81003; 87086; 99212; G0463